=== PATIENT | female | born 1945 | race Caucasian/White ===

== ENCOUNTER → 2016-11-27 | Outpatient (CLI) | payer OTHER | LOC: HEART CORB 10:15 | DX: R07.2 Precordial pain (principal) | CPT/HCPCS: 78452; A9502; J2785 ==

== ENCOUNTER 2021-01-20 09:04 | Inpatient (IN) | payer OTHER ==
[~2021-01-20] VITALS: Ht 160 cm; Wt 72.6 kg
[~2021-01-20 09:04] MED LIST: ASPIRIN CHEWABL81 MG PO; ATENOLOL25 MG PO; FOSAMAX70 MG PO; LIPITOR TAB 2020 MG PO; NORVASC 5 MG TAB5 MG PO; OSTERA TABLET1 EACH PO; PHOSPHA 250 NE250 MG PO; SYNTHROID100 MCG PO
[2021-01-20 12:22] LABS: HEMOGLOBIN 14.5 gm/dl (12.3-15.3); RED BLOOD COUNT 4.49 M/UL (4.00-5.10); WHITE BLOOD COUNT 15.1 K/UL (4.5-11.0)
[2021-01-20 12:41] LABS: BUN/CREATININE RATIO 21 (0-10)
[2021-01-20] MEDS ORDERED: CENTRUM SILVER1 EAC4 PO (16:48)
[2021-01-21 08:29] LABS: HEMOGLOBIN 14.1 gm/dl (12.3-15.3); RED BLOOD COUNT 4.35 M/UL (4.00-5.10); WHITE BLOOD COUNT 11.9 K/UL (4.5-11.0)
--- NOTE | 2021-01-21 10:05 | NUR ---
pt gone to sx at this time noted
[2021-01-22 06:55] LABS: HEMOGLOBIN 12.2 gm/dl (12.3-15.3); WHITE BLOOD COUNT 12.9 K/UL (4.5-11.0)
[2021-01-22 07:18] LABS: RED BLOOD COUNT 3.81 M/UL (4.00-5.10)
[2021-01-23 06:29] LABS: HEMOGLOBIN 11.6 gm/dl (12.3-15.3); RED BLOOD COUNT 3.64 M/UL (4.00-5.10); WHITE BLOOD COUNT 12.8 K/UL (4.5-11.0)
[2021-01-24 03:30] LABS: HEMOGLOBIN 11.6 gm/dl (12.3-15.3); RED BLOOD COUNT 3.64 M/UL (4.00-5.10)
[2021-01-24 03:37] LABS: WHITE BLOOD COUNT 9.2 K/UL (4.5-11.0)
[2021-01-25 03:14] LABS: HEMOGLOBIN 12.1 gm/dl (12.3-15.3); RED BLOOD COUNT 3.78 M/UL (4.00-5.10); WHITE BLOOD COUNT 8.4 K/UL (4.5-11.0)
[2021-01-28] MEDS ORDERED: ENOXAPARIN40 MG/0.4 SC (11:53)
[2021-01-28] MEDS ORDERED: LOPRESSOR 25 MG25 MG PO (12:03)
[2021-01-29] MEDS ORDERED: HYDROCODON-ACE1 EAC4 PO (12:49)
[2021-02-08] MEDS ORDERED: BISACODYL10 MG PR (12:11)
[2021-02-08] MEDS ORDERED: GENERLAC10 GM/15 M PO (12:12)
== END 2021-01-29 18:16 | DRG 493 ==
LOC: ER1 09:04 → CDU 11:52 → M/S 11:52
PROVIDERS: Internal Medicine; Orthopaedic Surgery; Physician Assistant; ADMIT Family Medicine
PROC: B24BZZ4 Ultrasonography of Heart with Aorta, Transesophageal (ICD-10-PCS; 2021-01-21)
PROC: 0QSG35Z Reposition Right Tibia with External Fixation Device, Percutaneous Approach (ICD-10-PCS; principal; 2021-01-21 11:31)
DX: S82.851A Displaced trimalleolar fracture of right lower leg, initial encounter for closed fracture (principal); N17.9 Acute kidney failure, unspecified; E03.9 Hypothyroidism, unspecified; I10 Essential (primary) hypertension; Z20.822 Contact with and (suspected) exposure to COVID-19; M81.0 Age-related osteoporosis without current pathological fracture; W10.9XXA Fall (on) (from) unspecified stairs and steps, initial encounter; E83.52 Hypercalcemia; I48.91 Unspecified atrial fibrillation; E78.5 Hyperlipidemia, unspecified; Z79.82 Long term (current) use of aspirin; Z79.01 Long term (current) use of anticoagulants; Z90.49 Acquired absence of other specified parts of digestive tract; Z95.1 Presence of aortocoronary bypass graft; Z88.5 Allergy status to narcotic agent
CPT/HCPCS: ECHO; 27818; 36415; 70450; 71045; 73590; 73610; 73630; 76000; 80048; 80053; 81001; 82550; 82553; 84439; 84443; 84484; 85025; 85610; 86850; 86900; 86901; 93005; 93306; 96374; 96375; 97110; 97116-GP-CQ; 97161; 97166; 97530-GP-CQ; 97535; 99284; C1713; J0690; J1100; J1170; J1650; J1885; J2001; J2270; J2370; J2405; J2550; J2704; J2795; J3010; J7030; J7120; U0002

== ENCOUNTER → 2021-02-08 | Day surgery (SDC) | payer OTHER ==
[~2021-02-08] MED LIST changes: +BISACODYL10 MG PR; +CENTRUM SILVER1 EAC4 PO; +ENOXAPARIN40 MG/0.4 SC; +GENERLAC10 GM/15 M PO; +HYDROCODON-ACE1 EAC4 PO; +LOPRESSOR 25 MG25 MG PO
[2021-02-08 13:24] LABS: HEMOGLOBIN 13.8 gm/dl (12.3-15.3); RED BLOOD COUNT 4.48 M/UL (4.00-5.10); WHITE BLOOD COUNT 9.1 K/UL (4.5-11.0)
== END | disposition home or self-care (01) ==
LOC: OR 07:30
PROVIDERS: Orthopaedic Surgery
DX: S82.852A Displaced trimalleolar fracture of left lower leg, initial encounter for closed fracture (principal); I10 Essential (primary) hypertension; E78.5 Hyperlipidemia, unspecified; J98.4 Other disorders of lung; M81.0 Age-related osteoporosis without current pathological fracture; Z90.49 Acquired absence of other specified parts of digestive tract; Z20.822 Contact with and (suspected) exposure to COVID-19; E03.9 Hypothyroidism, unspecified; W10.9XXA Fall (on) (from) unspecified stairs and steps, initial encounter
CPT/HCPCS: 36415; 71045; 73600; 76000; 80048; 85025; 93005; C1713; J0171; J0690; J1100; J2001; J2405; J2704; J2795; J3010; J7120; U0002